=== PATIENT | male | born 1955 ===

== ENCOUNTER 2021-03-30 07:15 | Emergency (ER) | payer MEDICARE, OTHER ==
[~2021-03-30] VITALS: Ht 182.9 cm; Wt 127.0 kg
[2021-03-30 07:20] VITALS: BP 0/0
[2021-03-30] MEDS ORDERED: SODIUM BICARBONATE 8.4% INJ 50ML SYRINGE ONE (07:20)
[2021-03-30] MEDS ORDERED: EPINEPHrine HCL 1 MG/10 ML SYRG ONE (07:29)
== END 2021-03-30 07:52 ==
LOC: ER 07:15 → EDBD 07:15 → ER 07:52
DX: I63.9 Cerebral infarction, unspecified (principal); E66.01 Morbid (severe) obesity due to excess calories; Z68.38 Body mass index [BMI] 38.0-38.9, adult
CPT/HCPCS: 31500; 92950; 99285; J0171